=== PATIENT | female | born 1965 | race Caucasian/White ===

== ENCOUNTER → 2023-11-20 08:33 | Outpatient (REF) | payer OTHER, SELFPAY | LOC: WDC 08:33 | PROVIDERS: ATTENDING PHYSICIAN Surgery | DX: C50.411 Malignant neoplasm of upper-outer quadrant of right female breast (principal) | CPT/HCPCS: 19285; 38792; 76942; 77065; A4648; A9541 ==

== ENCOUNTER 2023-11-21 06:30 | Day surgery (SDC) | payer OTHER, SELFPAY ==
[2023-11-16 08:19] VITALS: BMI 24.1
[2023-11-16 08:46] LABS: Hematocrit 30.8 % (37.0-47.0); Hemoglobin 10.4 g/dL (12.0-16.0); Mean Corp Hgb Conc. 33.8 g/dL (33.0-37.0); Mean Corpuscular Volume 103.7 fL (81.0-99.0); Mean Platelet Volume 9.6 fL (7.4-10.4); Platelet Count 206 10^3/uL (130-400); Red Blood Cell Count 2.97 10^6/uL (4.20-5.40); Red Cell Dist. Width 11.8 % (11.5-14.5); White Blood Cell Count 3.9 10^3/uL (4.8-10.8)
[2023-11-16 09:47] LABS: ALT (SGPT) 20 U/L (0-35); AST (SGOT) 24 U/L (14-36); Albumin 4.4 g/dl (3.5-5.0); Alkaline Phosphatase 93 U/L (38-126); Blood Urea Nitrogen 14 mg/dl (7-17); Calcium 9.7 mg/dl (8.4-10.2); Carbon Dioxide 24 mmol/L (22-30); Chloride 105 mmol/L (98-107); Estimated Creatinine Clearance 73 ml/min; Glucose 90 mg/dl (70-99); Potassium 4.3 mmol/L (3.5-5.1); Sodium 139 mmol/L (135-145); Total Bilirubin 0.3 mg/dl (0.2-1.3); Total Protein 6.8 g/dl (6.3-8.2); eGFR > 60.00
[2023-11-16 09:53] LABS: Prealbumin (Transthyretin) 19.3 mg/dl (17.6-36.0)
[2023-11-16 10:07] LABS: Vitamin D, 25-OH*** 83.1 ng/mL (30-80)
[2023-11-21] VITALS (7 sets, daily range): BP systolic 96–109; BP diastolic 47–61; BMI 24.1
[2023-11-21] MEDS: NORMOSOL-R 1000 IV (13:16)
[2023-11-21] MEDS: TYLENOL 1000 MG PO (13:17)
[2023-11-21] MEDS: TRANSDERM-SCOP 1 PATCH TRANSDERM (13:18)
[2023-11-21] MEDS: LOVENOX 40 MG SC (13:36)
[2023-11-21] MEDS: TORADOL 15 MG IV (18:22)
--- NOTE | 2023-11-24 09:57 | W.IMMPOSTOP ---
Surgical Immed Post Op Note
-
Primary Surgeon: Giorgi
Assisting Surgeon: None
Pre-op Diagnosis: Right breast ca
Post-op Diagnosis: Same
Procedure Performed: right localized lumpectomy, sentinel node mapping and biopsy and closure with oncoplastic mastoplasty
Anesthesia Type: General LMA
Specimen / Cultures: Right lumpectomy, plus 2 specimens, margins, sentinel nodes
Estimated Blood Loss: 8cc
Complications: None
Operative Findings: No reflector in specimens, neg nodes
Yancey Node Bx Breast Cancer
Yancey Node Bx Breast Cancer
Operation performed with curative intent: Yes
Tracer(s) to ID Yancey Nodes in Non-Neoadjuvant setting: N/A
Tracer(s) to ID Sentinal Nodes in the Neoadjuvant Setting: Dye and Radioactive Tracer
All nodes at end of dye-filled Lymphatic Channel removed: Yes
All Significantly Radioactive Nodes were removed: Yes
All Palpably Suspicious Nodes were Removed: Yes
Bx Proven Pos Nodes Marked Prior to Chemo ID'd & Removed: N/A
== END 2023-11-21 18:58 | disposition home or self-care (01) ==
LOC: SDS 06:30
PROVIDERS: ATTENDING PHYSICIAN Surgery; FAMILY PHYSICIAN Family Medicine; OTHER PHYSICIAN Internal Medicine Hematology & Oncology
DX: C50.911 Malignant neoplasm of unspecified site of right female breast (principal); Z92.21 Personal history of antineoplastic chemotherapy; Z17.1 Estrogen receptor negative status [ER-]
CPT/HCPCS: 38525; 19301; 88305; 88307; 88332; 36415; 76098; 80053; 82306; 84134; 85027; 88329; 88331; 88341; 88342; 93005; A4648

== ENCOUNTER → 2025-02-12 08:51 | Outpatient (REF) | payer OTHER, SELFPAY | LOC: WDC 08:51 | PROVIDERS: ATTENDING PHYSICIAN Surgery; REFERRING PHYSICIAN Internal Medicine Hematology & Oncology | DX: N64.4 Mastodynia (principal); Z17.1 Estrogen receptor negative status [ER-]; C50.411 Malignant neoplasm of upper-outer quadrant of right female breast | CPT/HCPCS: 76642 ==

== ENCOUNTER → 2025-03-24 06:58 | Outpatient (REF) | payer OTHER, SELFPAY | LOC: WDC 06:58 | PROVIDERS: ATTENDING PHYSICIAN Surgery | DX: R92.8 Other abnormal and inconclusive findings on diagnostic imaging of breast (principal) | CPT/HCPCS: 76642 ==

== ENCOUNTER 2025-06-13 06:08 | Day surgery (SDC) | payer OTHER, SELFPAY ==
[2025-06-02 12:09] LABS: Hematocrit 37.0 % (37.0-47.0); Hemoglobin 12.5 g/dL (12.0-16.0); Mean Corp Hgb Conc. 33.8 g/dL (33.0-37.0); Mean Corpuscular Volume 91.4 fL (81.0-99.0); Platelet Count 218 10^3/uL (130-400); Red Cell Dist. Width 13.9 % (11.5-14.5)
[2025-06-02 12:54] LABS: Alkaline Phosphatase 117 U/L (38-126); Blood Urea Nitrogen 14 mg/dl (7-17); Calcium 9.7 mg/dl (8.4-10.2); Carbon Dioxide 29 mmol/L (22-30); Chloride 103 mmol/L (98-107); Glucose 81 mg/dl (70-99); Potassium 4.6 mmol/L (3.5-5.1); Sodium 137 mmol/L (135-145); eGFR > 60.00
[2025-06-02 12:55] LABS: ALT (SGPT) 32 U/L (0-35); AST (SGOT) 30 U/L (14-36); Albumin 4.7 g/dl (3.5-5.0); Total Protein 8.0 g/dl (6.3-8.2)
[2025-06-02 13:11] LABS: Prealbumin (Transthyretin) 22.0 mg/dl (17.6-36.0)
[2025-06-02 13:23] LABS: Vitamin D, 25-OH*** 61.0 ng/mL (30-80)
[2025-06-02 14:23] VITALS: BMI 23.1
[2025-06-13 07:50] VITALS: BP 101/60
[2025-06-13] MEDS: TYLENOL 1000 MG PO (08:10)
[2025-06-13] MEDS: NORMOSOL-R/PLASMALYTE-A 1000 IV (08:12)
--- NOTE | 2025-06-13 09:55 | W.IMMPOSTOP ---
Surgical Immed Post Op Note
-
Primary Surgeon: Giorgi
Assisting Surgeon: None
Pre-op Diagnosis: Right breast ca
Post-op Diagnosis: Right breast ca
Procedure Performed: Removal left portacath
Anesthesia Type: TIVA
Specimen / Cultures: None
Estimated Blood Loss: 2cc
Complications: None
Operative Findings: None
--- NOTE | 2025-06-13 09:56 | OR.RPT ---
Operative Report
Operative Report
Date of procedure: 06/13/2025
Surgeon: Giorgi
Preoperative diagnosis: Right breast carcinoma
Postoperative diagnosis: Right breast carcinoma
Procedure: Removal left Port-A-Cath
The patient is a 60-year-old female who had undergone adjuvant chemotherapy for the treatment of HER2 positive right breast carcinoma. She presents now for left Port-A-Cath removal. The patient presented to the same-day surgical services unit on
the day of the procedure and she verified site and procedure. She was prepped and DVT and antibiotic prophylaxis were provided. She was taken to the operating room and in the supine position intravenous sedation was delivered. Left chest shoulder
and neck were prepped and draped in the usual sterile fashion. All team members performed an appropriate timeout procedure.
All tissues were anesthetized with 1% lidocaine plain. The previous insertion site incision was entered sharply with the blade. Dissection was carried down to the catheter which was removed intact from the vascular tract. The vascular tract was
suture-ligated with 3-0 chromic suture. Dissection was carried to the port pocket using the cautery and the catheter easily extruded and was removed. Hemostasis was maintained with the cautery. Marcaine 0.5% plain was instilled into all tissues
and the wound was closed using simple interrupted 3-0 chromic and subcutaneous tissue and a running subcuticular 4 oh [place] Derm on skin. Surgical glue and a sterile compressive dressing were applied. All sponge needle and instrument counts were
correct and the patient was transferred to the recovery room in stable condition.
([id number])
[2025-06-13 10:03] VITALS: BP 95/52
[2025-06-13 10:15] VITALS: BP 96/61
[2025-06-13 10:30] VITALS: BP 91/57
[2025-06-13 10:45] VITALS: BP 90/56
== END 2025-06-13 10:57 | disposition home or self-care (01) ==
LOC: SDS 06:08
PROVIDERS: ATTENDING PHYSICIAN Surgery; FAMILY PHYSICIAN Family Medicine; OTHER PHYSICIAN Internal Medicine Hematology & Oncology
DX: C50.411 Malignant neoplasm of upper-outer quadrant of right female breast (principal); Z92.21 Personal history of antineoplastic chemotherapy
CPT/HCPCS: 36590; 36415; 80053; 82306; 84134; 85027; 93005